=== PATIENT | female | born 1980 | race Caucasian/White ===

== ENCOUNTER → 2017-08-27 | Outpatient (CLI) | payer BC | LOC: HPND 08:23 | PROVIDERS: ATTEND Obstetrics & Gynecology | DX: O09.522 Supervision of elderly multigravida, second trimester (principal); O09.292 Supervision of pregnancy with other poor reproductive or obstetric history, second trimester | CPT/HCPCS: 76811 ==

== ENCOUNTER → 2017-10-17 | Outpatient (CLI) | payer BC | LOC: HPND 08:33 | PROVIDERS: ATTEND Obstetrics & Gynecology | DX: O09.529 Supervision of elderly multigravida, unspecified trimester (principal); O26.20 Pregnancy care for patient with recurrent pregnancy loss, unspecified trimester; Z3A.00 Weeks of gestation of pregnancy not specified | CPT/HCPCS: 76816 ==

== ENCOUNTER 2017-12-16 07:01 | Inpatient (IN) | payer BC ==
[2017-12-16] VITALS (28 sets, daily range): BP systolic 116–141; BP diastolic 53–72; PULSE 72–172; RESP 16–20; TEMP 97.9–99; O2SAT 99–100
[~2017-12-16] VITALS: Ht 165.1 cm; Wt 83.5 kg
[2017-12-16] MEDS ORDERED: LACTATED RINGER'S 1000 ML INJ 1,000 ML IV PRN (07:54)
--- NOTE | 2017-12-16 07:54 | HHI.HP ---
HPI Chief Complaint Water broke Date Seen: Dec 16, 2017 Time Seen: 07:45 Travel History International Travel<30 Days: No Contact w/Intl Traveler<30Days: No Known Affected Area: No History of Present Illness HPI Patient is 37-year-old white female at 34-[address] Glass 's who presents with the premature rupture the membranes, no bleeding, only occasional contractions seen. Amnio sure is positive. heart rate tracing is reactive Weeks Gestation: 34 Para: 0 : 5 History Obstetric History Obstetric History 3 spontaneous early ABs and 1 elective termination Past Surgical History Narrative Surgical D&C for elective termination of Social History Alcohol Use: No Tobacco Use: No Substance Abuse: No Review of Systems General / Constitutional: No: Fever, Weight Gain, Chills, Other Eyes: No: Diploplia, Blurred Vision, Visual changes, Pain, Photophobia HENT: No: Headaches, Vertigo, Lightheadedness Cardiovascular: No: Irregular Rhythm, Chest Pain or Discomfort, Palpitations, Tachycardia, Syncope, Varicosities, Edema, Cyanosis Respiratory: No: Cough, Short of Breath, Other Gastrointestinal: No: Nausea, Vomiting, Diarrhea Genitourinary: No: Decreased Urinary Output, Oliguria Musculoskeletal: No: Limited ROM, Weakness, Cramping, Edema, Pain Skin: No Rash, No Itching, No Dryness, No Lumps, No Change in Pigmentation, No Change in Nails, No Alopecia, No Lesions Neurologic: No: Weakness, Dizziness, Syncope, Focal Abnormalities, Coordination Problem, Headache, Slurred Speech, Seizures Psychiatric: No: Depression, Suicidal Ideations, Homicidal Ideation Endocrine: No: Heat Intolerance, Cold Intolerance, Polydipsia, Polyuria, Other Physical Exam Narrative GENERAL: Well-nourished, well-developed patient. SKIN: Warm and dry. HEAD: Normocephalic and atraumatic. EYES: No scleral icterus. No injection or drainage. ENT: No nasal drainage noted. Mucous membranes pink. Airway patent. NECK: Supple, trachea midline. No JVD. CARDIOVASCULAR: Regular rate and rhythm without murmurs, gallops, or rubs. RESPIRATORY: Breath sounds equal bilaterally. No accessory muscle use. BREASTS: Bilateral exam showed no masses , no retractions, no nipple discharge. ABDOMEN/GI: Abdomen soft, non-tender, bowel sounds present, no rebound, no guarding Gravid to [34-] weeks size Fundal Height: [34-] GENITOURINARY: External Genitalia: intact and normal in appearance BUS glands: [-] Cervix: [post-] Dilatation: [closed-] Effacement: [50-] Station: [-3] unengaged Presentation: [-vtx] Membranes: ruptured + amnisure] Uterine Contractions: [occasional-] FHT's: Category: [1-] Baseline: [133-] Reactive: [R-] Variability: [mod-] Decels: [-none] EXTREMITIES: No cyanosis or edema. BACK: Nontender without obvious deformity. No CVA tenderness. NEUROLOGICAL: Awake and alert. Motor and sensory grossly within normal limits. Five out of 5 muscle strength in all muscle groups. Normal speech. Caprini VTE Risk Assessment Caprini VTE Risk Assessment: No/Low Risk (score <= 1) Caprini Risk Assessment Model Point Value = 1 Point Value = 2 Point Value = 3 Point Value = 5 Age 41-60 Minor surgery BMI > 25 kg/m2 Swollen legs Varicose veins or History of unexplained or recurrent spontaneous Oral contraceptives or hormone replacement Sepsis (< 1 month) Serious lung disease, including pneumonia (< 1 month) Abnormal pulmonary function Acute myocardial infarction Congestive heart failure (< 1 month) History of inflammatory bowel disease Medical patient at bed rest Age 61-74 Arthroscopic surgery Major open surgery (> 45 min) Laparoscopic surgery (> 45 min) Malignancy Confined to bed (> 72 hours) Immobilizing plaster cast Central venous access Age >= 75 History of VTE Family history of VTE Factor V Leiden Prothrombin [id number] Lupus anticoagulant Anticardiolipin antibodies Elevated serum homocysteine Heparin-induced thrombocytopenia Other congenital or acquired thrombophilia Stroke (< 1 month) Elective arthroplasty Hip, pelvis, or leg fracture Acute spinal cord injury (< 1 month) Prophylaxis Regimen Total Risk Factor Score Risk Level Prophylaxis Regimen 0-1 Low Early ambulation 2 Moderate Order ONE of the following: *Sequential Compression Device (SCD) *Heparin 5000 units SQ BID 3-4 Higher Order ONE of the following medications: *Heparin 5000 units SQ TID *Enoxaparin/Lovenox 40 mg SQ daily (WT < 150 kg, CrCl > 30 mL/min) *Enoxaparin/Lovenox 30 mg SQ daily (WT < 150 kg, CrCl > 10-29 mL/min) *Enoxaparin/Lovenox 30 mg SQ BID (WT < 150 kg, CrCl > 30 mL/min) AND/OR *Sequential Compression Device (SCD) 5 or more Highest Order ONE of the following medications: *Heparin 5000 units SQ TID (Preferred with Epidurals) *Enoxaparin/Lovenox 40 mg SQ daily (WT < 150 kg, CrCl > 30 mL/min) *Enoxaparin/Lovenox 30 mg SQ daily (WT < 150 kg, CrCl > 10-29 mL/min) *Enoxaparin/Lovenox 30 mg SQ BID (WT < 150 kg, CrCl > 30 mL/min) AND *Sequential Compression Device (SCD) Data Data Labs + amnisure Bedside ultrasound done by me single intrauterine in a vertex presentation, male fetus weight 2151 g [4 lbs. 12 oz.] gestational age is to 33 weeks 2 days by ultrasound, normal cardiac motion, normal anatomy scan, normal amniotic fluid volume, fundal grade 1 placenta Assessment/Plan Assessment and Plan Patient is 37-year-old white female at 34-35 weeks with premature rupture the membranes Plans admission the hospital for her OB provider, will induced/augmented labor , covered with IV antibiotics, and anticipate vaginal delivery Tomasz Peña II, MD Dec 16, 2017 07:54
[2017-12-16] MEDS ORDERED: LIDOCAINE HCL 1% 30 ML VIAL I-DERMAL PRN (08:00)
[2017-12-16] MEDS ORDERED: BETAMETHASONE SOD PHOS/ACETATE SUSP 30 MG/5 ML VIAL IM ONE ×2 (08:00→21:15)
[2017-12-16] MEDS ORDERED: PENICILLIN G POTASSIUM INJ 5,000,000 UNITS in SODIUM CHLORIDE 0.9% INJ 100 ML IV ONE (08:00)
[2017-12-16] MEDS ORDERED: SODIUM CHLORID 0.9% 500 ML INJ 500 ML IV PRN (08:00)
[2017-12-16] MEDS ORDERED: MINERAL OIL 10 ML VIAL TOPICAL PRN (08:00)
[2017-12-16] MEDS ORDERED: CITRIC ACID-SODIUM CITRATE LIQ 30 ML UDC PO SCH (08:00)
[2017-12-16] MEDS ORDERED: LIDOCAINE HCL 1% 30 ML VIAL INFIL PRN (08:00)
[2017-12-16] MEDS ORDERED: OXYTOCIN 30 UNITS-500ML PREMIX 500 ML IV ONE ×2 (08:00→22:45)
[2017-12-16] MEDS ORDERED: SODIUM CHLOR 0.9% 1000 ML INJ 1,000 ML IV PRN (08:14)
[2017-12-16 08:43] LABS: AUTOMATED NEUTROPHIL # 10.8 TH/MM3 (1.8-7.7); BASOPHIL % 0.3 % (0.0-2.0); EOSINOPHIL # 0.1 TH/MM3 (0-0.4); EOSINOPHIL % 0.6 % (0.0-4.0); HEMATOCRIT 33.2 % (35.0-46.0); HEMOGLOBIN 11.5 GM/DL (11.6-15.3); LYMPHOCYTE # 1.8 TH/MM3 (1.0-4.8); MEAN CELL VOLUME 93.9 FL (80.0-100.0); MEAN CORPUSCULAR HEMOGLOBIN 32.5 PG (27.0-34.0); MEAN CORPUSCULAR HGB CONC 34.6 % (32.0-36.0); MEAN PLATELET VOLUME 8.3 FL (7.0-11.0); MONO % 8.7 % (0.0-8.0); MONOCYTE # 1.2 TH/MM3 (0-0.9); NEUT % 77.4 % (16.0-70.0); PLATELET COUNT 311 TH/MM3 (150-450); RED BLOOD COUNT 3.54 MIL/MM3 (4.00-5.30); RED CELL DISTRIBUTION WIDTH 14.4 % (11.6-17.2)
[2017-12-16 08:47] LABS: BACTERIA, URINE RARE /hpf; BILIRUBIN, URINE NEG (NEG); BLOOD, URINE TRACE (NEG); GLUCOSE,URINE NEG (NEG); KETONE, URINE NEG (NEG); MUCUS URINE FEW /lpf (OCC); NITRITE,URINE NEG (NEG); SQUAMOUS EPITHELIAL CELL URINE 4 /hpf (0-5); URINE COLOR YELLOW (YELLW/STRAW); URINE LEUKOCYTE ESTERASE TRACE (NEG)
[2017-12-16] MEDS: LACTATED RINGER'S 1000 ML INJ 1,000 ML IV SCH ×4 (09:26→21:29)
[2017-12-16] MEDS ORDERED: PREN29TA PO (09:32)
[2017-12-16] MEDS ORDERED: AMBI5TAB PO (09:32)
[2017-12-16] MEDS ORDERED: MISOPROSTOL 100 MCG TAB - VAGINALLY VAGINAL ONE (11:00)
--- NOTE | 2017-12-16 12:22 | PD.LABORPN ---
Subjective Subjective pt comfortable. states srom clear at 0500 Objective Objective Pelvic Exam: Cervix: [-] Dilatation: [-] Effacement: [-] Station: [-] Presentation: [-] Membranes: [intact or ruptured] ruptured Uterine Contractions: [-] FHT's: Category: [-] 1 Baseline: [-] 150s Reactive: [-] reactive Variability: [-] mod Decels: [-] Weeks Gestation: 34 Pt started active labor?: No Medical induction of labor?: Yes Artificial rupture of membrane: No Assessment/Plan Problem List: (1) premature rupture of membranes in third trimester ICD Codes: O42.913 - premature rupture of membranes, unspecified as to length of time between rupture and onset of labor, third trimester Plan: cont abx for second dose of steroids at 2100 cytotec for induction reviewed risks of prematurity, will consult kenia. all questions answered. Betsey Glass MD Dec 16, 2017 12:22
[2017-12-16] MEDS: PENICILLIN G POTASSIUM INJ 2,500,000 UNITS in SODIUM CHLORIDE 0.9% INJ 100 ML IV SCH ×3 (14:04→20:00)
[2017-12-16] MEDS ORDERED: MISOPROSTOL 25 MCG TAB PO ONE (15:45)
[2017-12-16] MEDS ORDERED: DIPHTH/TETANUS/ACEL PERTUSSIS (BOOSTER) 0.5 ML VIAL/PFS IM ONE (16:00)
[2017-12-16] MEDS ORDERED: MEASLES, MUMPS, RUBELLA VACCINE 0.5 ML VIAL SQ ONE (16:00)
--- NOTE | 2017-12-16 16:13 | HHI.PR ---
Addendum to Inpatient Note Addendum Reason: Additional Documentation Additional Information / Consult: Maternal Hx: 37 y/o WF, at 34 5/7 weeks gestation with premature, prolonged ROM. Mother states that she broke her water at ~ 5 am this am (12/16/17). No report of cramping or contractions. Mother denies alcohol, tobacco or drug use. Had been receiving care with Dr Glass's practice. Mother admitted to [facility] on 12/16/17, secondary to spontaneous ROM. Ultrasound on 12/16/17 confirmed intrauterine at 34 5/7 weeks gestation with EDC of 01/22/18. Estimated weight of 4 lbs 12 oz. No maternal temperature noted since admission. Maternal Labs: O+, Abs neg, Rubella immune, RPR NR, GBS negative, Hepatitis B negative, HIV NR, GC and Chlamydia negative. Maternal Meds: PNV, Penicillin G, Betamethasone on 12/16/17 at 9:00. Maternal Management: Will monitor maternal temperature closely Administer second does of Betamethasone at 2100 Continue prophylactic antibiotics Induce labor after 2nd dose of Betamethasone. Discussion: Nurse practitioner met with mother regarding threatened delivery at 34+ weeks gestation secondary to prolonged, premature ROM and potential for sepsis. This consultation included generalized care of the in the NICU, common problems, complications and survival and/or disability potential at this time. The Nurse Practitioner provided information regarding the [employer] national statistics on overall survival at 34+ weeks and >2 kg at > 98% and intact survival without significant neurodevelopmental disability or visual disability at > 98%. It was explained to mother what to expect from the time of delivery to admission to the NICU. Reviewed disease processes that may affect an infant of this gestation, including but not limited to respiratory distress, infection, and nutritional challenges. Discussion focused on potential infection and its treatment secondary to prolonged rupture of membranes. Explained that infant is a late who may require assistance with feeding via gavage tube, supplemental heat (incubator) and IV fluids for medication administration and/or nutrition. Also explained that infant is at risk for respiratory distress, hypoglycemia and poor weight gain. Also discussed risk of hyperbilirubinemia and treatment with phototherapy. Mother intends to breast feed and will begin pumping shortly after delivery. Mother is not opposed to providing formula should the need arise, but understands that breast milk is preferred. It was explained to mother that the may attempt to breast feed once clinically stable. Explained the support systems in place at [facility] such as and social work therapist. Expected discharge would likely occur on or before the due date should the infant have an uncomplicated hospitalization. Mother and father verbalized understanding of information provided and asked appropriate questions. Greater than 50% of the consultation time was spent with the patient. Ree Noland Dec 16, 2017 16:13
[2017-12-16] MEDS ORDERED: ONDANSETRON HCL 4 MG/2 ML VIAL ONE (20:38)
[2017-12-16] MEDS ORDERED: ePHEDrine/NS 25 MG/5 ML SYRINGE ONE (21:46)
[2017-12-16] MEDS ORDERED: fentaNYL 2MCG-BUPIV 0.125% INJ 100 ML ONE (21:46)
[2017-12-16] MEDS ORDERED: LIDOCAINE HCL 1.5% PF SOLN 20 ML AMP ONE (22:26)
[2017-12-16] MEDS ORDERED: OXYTOCIN 30 UNITS-500ML PREMIX 500 ML ONE (22:26)
[2017-12-16] MEDS ORDERED: ONDANSETRON ODT 4 MG TAB PO PRN (22:45)
[2017-12-16] MEDS ORDERED: oxyCODONE/ACETAMINOPHEN 5 MG/325 MG TAB PO PRN ×2 (22:45)
[2017-12-16] MEDS ORDERED: WITCH HAZEL 50%/GLYCERIN 12.5% 40 PAD JAR TOPICAL PRN (22:45)
[2017-12-16] MEDS ORDERED: SODIUM CHLORIDE 0.9% FLUSH 10 ML FLUSH IV FLUSH PRN (22:45)
[2017-12-16] MEDS ORDERED: ZOLPIDEM TARTRATE 5 MG TAB PO PRN (22:45)
[2017-12-16] MEDS ORDERED: BENZOCAINE 20% TOPICAL SPRAY 60 ML CAN TOPICAL PRN (22:45)
[2017-12-16] MEDS ORDERED: OXYTOCIN 30 UNITS-500ML PREMIX 500 ML IV SCH (22:45)
[2017-12-16] MEDS ORDERED: ACETAMINOPHEN 325 MG TAB PO PRN (22:45)
[2017-12-16] MEDS ORDERED: LIDOCAINE HCL 1% 20 ML VIAL INFIL ONE (22:45)
[2017-12-16] MEDS ORDERED: OXYTOCIN 10 UNIT/ML AMP XX PRN (22:45)
[2017-12-16] MEDS ORDERED: ALUMINUM/MAGNESIUM/SIMETH 30 ML CUP PO PRN (22:45)
--- NOTE | 2017-12-16 22:48 | PD.OB.DELI ---
Weeks gestation: 34 Pt started active labor?: No Medical induction of labor?: Yes Artificial rupture of membrane: No Anesthesia: None Episiotomy: None Vaginal Delivery: Normal, Spontaneous Presentation: Occiput anterior Nuchal Cord: None Delayed cord clamping (45 sec): Yes : Male Delivery date: Dec 16, 2017 Delivery time: 22:26 One Minute : 9 Five Minute : 9 Weight: 2350gms Placenta: Spontaneous delivery, Intact, 3 vessel cord Laceration: Perineal laceration, 1 deg Repair: Chromic running Estimated blood loss: 300cc Tara Patricio MD Dec 16, 2017 22:48
[2017-12-16] MEDS: IBUPROFEN 800 MG TAB PO PRN (23:32)
[2017-12-17 00:40] VITALS: BP 135/65; PULSE 76; RESP 18; TEMP 97.9; O2SAT 97
[2017-12-17] MEDS: DOCUSATE SODIUM 50 MG/SENNA 8.6 MG TAB PO PRN ×2 (00:46→22:04)
[2017-12-17] MEDS: IBUPROFEN 800 MG TAB PO PRN ×2 (08:07→15:54)
[2017-12-17 08:30] VITALS: BP 111/67; PULSE 72; RESP 16; TEMP 98
[2017-12-17] MEDS ORDERED: SODIUM CHLORIDE 0.9% FLUSH 10 ML FLUSH IV FLUSH SCH (09:00)
[2017-12-17] MEDS ORDERED: NICOTINE 21 MG/24 HR PATCH T-DERMAL SCH (12:00)
[2017-12-17 20:00] VITALS: BP 123/74; PULSE 68; RESP 16; TEMP 98; O2SAT 99
[2017-12-17] MEDS ORDERED: REMOVE OLD NICODERM (NICOTINE) PATCH T-DERMAL SCH (21:00)
--- NOTE | 2017-12-17 21:40 | HHI.OB ---
Subjective Post Day: 1 Remarks pain controlled, mod lochia, ema po, +void/flatus Objective Vitals/I&O Vital Signs Date Time Temp Pulse Resp B/P (MAP) Pulse Ox O2 Delivery O2 Flow Rate FiO2 12/17/17 08:30 98.0 72 16 111/67 (82) 12/17/17 00:40 97.9 76 18 135/65 (88) 97 12/16/17 23:54 98.0 18 12/16/17 23:45 172 116/61 (79) 12/16/17 23:37 18 12/16/17 23:30 78 128/69 (88) 12/16/17 23:25 18 12/16/17 23:15 81 120/59 (79) 12/16/17 23:03 16 12/16/17 23:00 78 141/67 (91) 12/16/17 22:52 16 12/16/17 22:45 72 127/65 (85) 12/16/17 22:42 76 139/64 (89) 12/16/17 22:15 81 100 12/16/17 22:10 77 99 12/16/17 22:00 85 100 12/16/17 21:55 80 Objective Remarks GENERAL: Well-nourished, well-developed patient. CARDIOVASCULAR: Regular rate and rhythm without murmurs, gallops, or rubs. RESPIRATORY: Breath sounds equal bilaterally. No accessory muscle use. ABDOMEN/GI: Abdomen soft, non-tender. Fundus: Firm, non-tender at umbilicus. GENITOURINARY: Light to moderate bleeding. EXTREMITIES: No cyanosis or edema, non-tender, without signs of DVT. Medications and IVs Current Medications Medications (Trade) Dose Ordered Sig/Wilber Route Start Time Stop Time Status Last Admin (Pitocin Inj) 20 units UNSCH X1 PRN XX 12/16/17 22:45 12/17/17 22:44 (NS Flush) 2 ml BID IV FLUSH 12/17/17 09:00 (NS Flush) 2 ml UNSCH PRN IV FLUSH 12/16/17 22:45 (Tylenol) 650 mg Q4H PRN PO 12/16/17 22:45 (Motrin) 800 mg Q8H PRN PO 12/16/17 22:45 12/17/17 15:54 (Percocet 5-325 Mg) 1 tab Q4H PRN PO 12/16/17 22:45 (Percocet 5-325 Mg) 2 tab Q4H PRN PO 12/16/17 22:45 (Americaine 20% Top Spr) 1 spray Q4H PRN TOPICAL 12/16/17 22:45 12/17/17 00:46 (Tucks Pads) 1 applic QID PRN TOPICAL 12/16/17 22:45 12/17/17 00:46 (Birttany-Colace) 2 tab Q12H PRN PO 12/16/17 22:45 12/17/17 00:46 (Ambien) 5 mg HS PRN PO 12/16/17 22:45 (Mag-Al Plus Susp Liq) 15 ml Q8H PRN PO 12/16/17 22:45 (Zofran Odt) 4 mg Q6H PRN PO 12/16/17 22:45 (Habitrol 21 Mg Patch.24 Hr) 1 patch DAILY T-DERMAL 12/17/17 12:00 12/17/17 11:54 Miscellaneous Information 1 HS T-DERMAL 12/17/17 21:00 Assessment/Plan Problem List: (1) premature rupture of membranes in third trimester ICD Codes: O42.913 - premature rupture of membranes, unspecified as to length of time between rupture and onset of labor, third trimester Status: Resolved Plan: doing well routine pp care baby in room Betsey Glass MD Dec 17, 2017 21:40
--- NOTE | 2017-12-17 21:45 | HHI.DCPOC ---
Discharge Care Plan Diagnosis: (1) premature rupture of membranes in third trimester Your Health Problems Are: Vaginal delivery Report Symptoms to Your Doctor -Temperature above 100.5 degrees -Redness, of incision or excessive or foul smelling drainage -Unusual pain or calf pain -Increased vaginal bleeding -Painful or difficulty urinating -Feelings of extreme sadness or anxiety after 2 weeks Goals to Promote Your Health * To prevent worsening of your condition and complications * To maintain your health at the optimal level Directions to Meet Your Goals Take your medications as prescribed Follow your dietary instruction Follow activity as directed Ensure plenty of rest for recovery Drink fluids for hydration Keep your appointments as scheduled Take your immunizations and boosters as scheduled If your symptoms worsen call your PCP, if no PCP go to Urgent Care Center or Emergency Room Smoking is Dangerous to Your Health. Avoid second hand smoke Call the 24-hour crisis hotline for domestic abuse at Betsey Glass MD Dec 17, 2017 21:45
[2017-12-18 08:00] VITALS: BP 114/74; PULSE 73; RESP 14; TEMP 97.9
== END 2017-12-18 13:03 | disposition home or self-care (01) | DRG 775 ==
LOC: HOBED 07:01 → H2EA 08:20 → H1EA 12-17 00:19
PROVIDERS: ADMIT Obstetrics & Gynecology; ATTEND Obstetrics & Gynecology
PROC: 10E0XZZ Delivery of Products of Conception, External Approach (ICD-10-PCS; principal; 2017-12-16)
PROC: 0HQ9XZZ Repair Perineum Skin, External Approach (ICD-10-PCS; 2017-12-16)
PROC: 3E0P7VZ Introduction of Hormone into Female Reproductive, Via Natural or Artificial Opening (ICD-10-PCS; 2017-12-16)
DX: O42.013 Preterm premature rupture of membranes, onset of labor within 24 hours of rupture, third trimester (principal); O70.0 First degree perineal laceration during delivery; Z3A.34 34 weeks gestation of pregnancy; Z37.0 Single live birth
CPT/HCPCS: 59025; 76815; 80307; 81001; 84112; 85025; 86850; 86900; 86901; 87081; 87150; 88307; 96365; 96372; J0702; J2405; J2540; J2590; J3010; J7120